=== PATIENT | male | born 1955 | race Caucasian/White ===

== ENCOUNTER 2020-10-23 08:16 | Outpatient (CLI) | payer MEDICARE | END 2020-10-23 08:17 | disposition home or self-care (01) | LOC: CSHCT 08:16 | PROVIDERS: ATTEND Urology | DX: N40.1 Benign prostatic hyperplasia with lower urinary tract symptoms (principal); R31.29 Other microscopic hematuria; K76.0 Fatty (change of) liver, not elsewhere classified; K75.3 Granulomatous hepatitis, not elsewhere classified; N28.1 Cyst of kidney, acquired; N40.0 Benign prostatic hyperplasia without lower urinary tract symptoms | CPT/HCPCS: 74178; 82565 ==